=== PATIENT | female | born 1945 | race Hispanic/Latino ===

== ENCOUNTER 2020-09-30 10:54 | Emergency (ER) | payer MEDICARE ==
[~2020-09-30] VITALS: Ht 165.1 cm; Wt 75.7 kg
--- NOTE | 2020-09-30 12:27 | Diagnostic Imaging Report ---
X-ray 2 views of the right shoulder HISTORY: Shoulder pain after fall. COMPARISON: None available. FINDINGS: Bone/joints: There is comminuted and mildly displaced fracture of the right humeral head. No evidence of glenohumeral or acromioclavicular dislocation. Soft tissues: There is mild regional soft tissue swelling. Others: The partially imaged right hemithorax is clear. IMPRESSION: Comminuted and mildly displaced fracture of the right humeral head. No evidence of dislocation. Signed by: Tarah Natarajan MD on 09/30/2020 12:24 PM
--- NOTE | 2020-09-30 12:51 | Emergency Department Note ---
History of Present Illnes History of Present Illness Chief Complaint: Extremity Trauma/Pain History of Present Illness This is a 75 year old female RIGHT SHOULDER PAIN. TRIPPED AND FELL HITTING KNEES AND RIGHT SHOULDER ON CONCRETE. DENIES ANY LOC. ABRASIONS TO KNEES. Historian: Patient Arrival Mode: Car Additional Treatment ASSISTED LIVING NURSING DIRECTOR: NONE Net C Developer Required: No Onset (how long ago): minute(s) Location: RIGHT SHOULDER Quality: PAIN Radiation: Reports non-radiation Severity: moderate Onset quality: sudden Timing of current episode: constant Progression: unchanged Chronicity: new Context: Denies recent illness Relieving factors: none Exacerbating factors: none Associated symptoms: Reports denies other symptoms Past Medical/Family History Physician Review I have reviewed the patient's past medical and family history. Any updates have been documented here. Past Medical History Recent Fever: No Clinical Suspicion of Infectio: No New/Unexplained Change in Ment: No Past Medical History: Hypertension, Diabetes, Hyperlipedemia Past Surgical History: None Social History Smoking Cessation: Unknown if ever smoked Counseling Performed: No Alcohol Use: None Any Illegal Drug Use: No Physically hurt or threatened: No Family History Family history of heart diseas: No Other Any Pre-Existing Lines (PICC,: No Review of Systems Review of Systems Constitutional: Reports no symptoms EENTM: Reports no symptoms Cardiovascular: Reports no symptoms Respiratory: Reports no symptoms Gastrointestinal: Reports no symptoms Genitourinary: Reports no symptoms Musculoskeletal: Reports as per HPI Integumentary: Reports no symptoms Neurological: Reports no symptoms Psychological: Reports no symptoms Endocrine: Reports no symptoms Hematological/Lymphatic: Reports no symptoms Physical Exam Related Data Allergies: Coded Allergies: No Known Allergies (Unverified , 09/30/20) Triage Vital Signs Vital Signs Date Time Temp Pulse Resp B/P (MAP) Pulse Ox O2 Delivery O2 Flow Rate FiO2 09/30/20 11:17 97.8 85 18 223/73 97 Room Air Vital signs reviewed: Yes Physical Exam CONSTITUTIONAL Constitutional: Present well-developed, Present well-nourished HENT HENT: Present normocephalic, Present atraumatic, Present oropharynx clear/moist, Present nose normal HENT L/R: Present left ext ear normal, Present right ext ear normal EYES Eyes: Reports PERRL, Reports conjunctivae normal NECK Neck: Present ROM normal PULMONARY Pulmonary: Present effort normal, Present breath sounds normal CARDIOVASCULAR Cardiovascular: Present regular rhythm, Present heart sounds normal, Present capillary refill normal, Present normal rate GASTROINTESTINAL Abdominal: Present soft, Present nontender, Present bowel sounds normal GENITOURINARY Genitourinary: Present exam deferred SKIN Skin: Present warm, Present dry MUSCULOSKELETAL Musculoskeletal: Present other (PROX HUMERUS WITH TTP, MILD SWELLING, DECR ROM, DISTAL N/V INTACT) NEUROLOGICAL Neurological: Present alert, Present oriented x 3, Present no gross motor or sensory deficits PSYCHOLOGICAL Psychological: Present mood/affect normal, Present judgement normal Results Imaging Imaging results reviewed: Yes Impressions X-ray 2 views of the right shoulder HISTORY: Shoulder pain after fall. COMPARISON: None available. FINDINGS: Bone/joints: There is comminuted and mildly displaced fracture of the right humeral head. No evidence of glenohumeral or acromioclavicular dislocation. Soft tissues: There is mild regional soft tissue swelling. Others: The partially imaged right hemithorax is clear. IMPRESSION: Comminuted and mildly displaced fracture of the right humeral head. No evidence of dislocation. Signed by: Tarah Natarajan MD on 09/30/2020 12:24 PM Assessment & Plan Medical Decision Making MDM FALL, RIGHT SHOULDER PAIN - XRAY R/O FX Reassessment Reassessment DC HOME, SLING/SWATH, F/U PCP AND ORTHO DR NEGRETE Assessment & Plan Final Impression: (1) Humerus fracture Depart Disposition: HOME, SELF-CARE Last Vital Signs Date Time Temp Pulse Resp B/P (MAP) Pulse Ox O2 Delivery O2 Flow Rate FiO2 09/30/20 11:17 97.8 85 18 223/73 97 Room Air RICK SHEPHERD MD Sep 30, 2020 12:51
== END 2020-09-30 14:06 | disposition home or self-care (01) ==
LOC: ER 11:12
DX: S42.91XA Fracture of right shoulder girdle, part unspecified, initial encounter for closed fracture (principal); M25.511 Pain in right shoulder; W01.0XXA Fall on same level from slipping, tripping and stumbling without subsequent striking against object, initial encounter; Y93.01 Activity, walking, marching and hiking; Y92.008 Other place in unspecified non-institutional (private) residence as the place of occurrence of the external cause
CPT/HCPCS: 99284

== ENCOUNTER 2022-04-09 19:28 | Emergency (ER) | payer MEDICARE ==
[~2022-04-09] VITALS: Ht 165.1 cm; Wt 75.7 kg
[2022-04-09 19:50] LABS: BASOPHILS % 0.5 % (0.0-1.0); EOSINOPHILS # (AUTO) 0.4 (0.0-0.4); EOSINOPHILS % 4.4 % (0.0-6.0); HEMATOCRIT 40.8 % (34.2-44.1); HEMOGLOBIN 13.2 g/dL (12.0-16.0); LYMPHOCYTES # (AUTO) 2.6 (1.0-3.2); LYMPHOCYTES % 29.3 % (18.0-39.1); MEAN CORPUSCULAR HEMOGLOBIN 27.2 pg (28-32); MEAN CORPUSCULAR HGB CONC 32.4 g/dL (31-35); MONOCYTES # (AUTO) 0.6 (0.2-0.8); MONOCYTES % 6.5 % (4.4-11.3); NEUTROPHILS # (AUTO) 5.1 (2.1-6.9); NEUTROPHILS % 57.8 % (38.7-80.0); PLATELET COUNT 308 x10e3/uL (140-360); RED BLOOD COUNT 4.86 x10e6/uL (3.6-5.1); RED CELL DISTRIBUTION WIDTH 13.2 % (11.7-14.4)
[2022-04-09 20:11] LABS: ALBUMIN 3.8 g/dL (3.5-5.0); ALBUMIN/GLOBULIN RATIO 0.9 (0.8-2.0); CALCIUM 8.5 mg/dL (8.4-10.2); CREATININE, SERUM 1.77 mg/dL (0.57-1.11)
[2022-04-09 20:20] LABS: CREATINE KINASE MB 3.6 ng/mL (0-5.0)
[2022-04-09 21:11] LABS: CLARITY,URINE CLEAR (CLEAR); COLOR,URINE YELLOW (YELLOW); KETONES,URINE NEGATIVE (NEGATIVE); LEUKOCYTE ESTERASE ,URINE NEGATIVE (NEGATIVE); NITRITE,URINE NEGATIVE (NEGATIVE); PROTEIN,URINE DIPSTICK 1+ (NEGATIVE); URINE UROBILINOGEN 0.2 mg/dL (0.2 - 1)
[2022-04-09 21:19] LABS: BACTERIA,URINE RARE /HPF; EPITHELIAL CELLS,URINE FEW /LPF
== END 2022-04-10 00:59 | disposition other institution (70) ==
LOC: ER 19:40
DX: R20.0 Anesthesia of skin (principal); R06.00 Dyspnea, unspecified; E11.65 Type 2 diabetes mellitus with hyperglycemia; I10 Essential (primary) hypertension; E78.5 Hyperlipidemia, unspecified; Z20.822 Contact with and (suspected) exposure to COVID-19
CPT/HCPCS: 36415; 70450; 80053; 81001; 82550; 82553; 84484; 85025; 93005; 99284; U0002